=== PATIENT | male | born 1985 | race Caucasian/White ===

== ENCOUNTER 2017-02-07 14:42 | Emergency (ER) | payer OTHER ==
[~2017-02-07] VITALS: Ht 175.3 cm; Wt 69.8 kg
[~2017-02-07 14:42] MED LIST: ADVAIR 250/501 DISK IH; BACTRIM,SEPT1 TABLET PO; CELEBREX200 MG PO; KEFLEX500 MG PO; TRAZODONE HCL150 MG PO
[2017-02-07 16:16] VITALS: BP 128/72
== END 2017-02-07 16:31 | disposition home or self-care (01) ==
LOC: EME 14:42
DX: Z04.6 Encounter for general psychiatric examination, requested by authority (principal); F11.10 Opioid abuse, uncomplicated; F17.200 Nicotine dependence, unspecified, uncomplicated
CPT/HCPCS: 90837; 99281; 99285

== ENCOUNTER 2017-03-09 16:53 | Emergency (ER) | payer OTHER ==
[~2017-03-09] VITALS: Ht 177.8 cm; Wt 69.2 kg
[2017-03-09] MEDS ORDERED: TYLENOL WITH C1 EACH PO ×2 (19:44→19:54)
[2017-03-09 20:09] VITALS: BP 138/81
== END 2017-03-09 20:11 | disposition home or self-care (01) ==
LOC: EME 16:53
PROC: 2W3CX1Z Immobilization of Right Lower Arm using Splint (ICD-10-PCS; principal; 2017-03-09)
DX: S66.911A Strain of unspecified muscle, fascia and tendon at wrist and hand level, right hand, initial encounter (principal); S39.012A Strain of muscle, fascia and tendon of lower back, initial encounter; V29.49XA Motorcycle driver injured in collision with other motor vehicles in traffic accident, initial encounter; Y92.410 Unspecified street and highway as the place of occurrence of the external cause; F11.10 Opioid abuse, uncomplicated; F17.200 Nicotine dependence, unspecified, uncomplicated
CPT/HCPCS: 72100; 73130; 99281; 99283

== ENCOUNTER 2017-04-21 22:32 | Emergency (ER) | payer OTHER ==
[~2017-04-21] VITALS: Ht 170.2 cm; Wt 70.4 kg
[~2017-04-21 22:32] MED LIST changes: +TYLENOL WITH C1 EACH PO
[2017-04-21 23:40] LABS: HEMATOCRIT 39.8 % (38.0-50.0); MCH 29.9 PG (29.0-34.0); MCHC 33.4 G/DL (30.0-36.0); MCV 89.4 FL (86-99); MEAN PLAT.VOLUME 9.4 uM^3 (9.0-12.4); PLATELET COUNT 228 K/uL (156-360); RBC DIS.WIDTH-CV 12.4 % (11.8-14.6); RBC DIS.WIDTH-SD 40.6 % (39-53); RED BLOOD COUNT 4.45 M/uL (4.00-5.50); WHITE BLOOD COUNT 6.8 K/uL (4.1-10.2)
[2017-04-21 23:54] LABS: CHLORIDE 107 mEq/L (99-109); POTASSIUM 4.1 mEq/L (3.7-5.4); SODIUM 141 mEq/L (136-147)
[2017-04-21 23:56] LABS: GLUCOSE 66 mg/dL (70-99)
[2017-04-21 23:57] LABS: ANION GAP 7 MEQ/L (2-14)
[2017-04-21 23:59] LABS: SERUM ETHYL ALCOHOL < 10 mg/dL
[2017-04-22] LABS: GFR ESTIMATE (CALCULATED) > 59 mL/min/; UREA NITROGEN (BUN) 10 mg/dL (9-23)
[2017-04-22] MEDS ORDERED: CLONIDINE HCL0.1 MG PO (01:43)
[2017-04-22 01:54] VITALS: BP 153/98
== END 2017-04-22 02:02 | disposition home or self-care (01) ==
LOC: EME 22:32
DX: F32.9 Major depressive disorder, single episode, unspecified (principal); F19.10 Other psychoactive substance abuse, uncomplicated; F17.200 Nicotine dependence, unspecified, uncomplicated
CPT/HCPCS: 80048; 85027; 90839; 99281; 99284; G0480